=== PATIENT | male | born 1995 | race African-American/Black ===

== ENCOUNTER 2017-04-26 15:47 | Emergency (ER) | payer OTHER ==
[~2017-04-26] VITALS: Ht 182.9 cm; Wt 81.7 kg
[2017-04-26] MEDS ORDERED: OSELB75 PO (18:00)
== END 2017-04-26 18:24 | disposition home or self-care (01) ==
LOC: ER 15:47
DX: J11.1 Influenza due to unidentified influenza virus with other respiratory manifestations (principal)

== ENCOUNTER 2017-09-01 22:50 | Emergency (ER) | payer BC, OTHER ==
[~2017-09-01] VITALS: Ht 182.9 cm; Wt 86.2 kg
--- NOTE | ~2017-09-01 | EKG ---
[address] [address] [place] [address] ELECTROCARDIOGRAM REPORT Name: BALDEMAR CARLISLE [id number] Admission: 09/01/17 Attend Phys: Discharge: 09/02/17 Date of : [birth year] Report #: [id number] THIS REPORT FOR: //name// [facility] ED Test Date: 2017-09-01 Test Time: 22:53:15 Pat Name: BALDEMAR CARLISLE Department: Room: Gender: Environmental Compliance Officer: [facility] : 1995 Requested By: Mignon Burns Order Number: [id number] MD: René Reeves Measurements Intervals [place] Rate: 67 P: 77 VA: 186 QRS: 98 QRSD: 90 T: 48 QT: 376 QTc: 397 Interpretive Statements Sinus rhythm right axis deviation ST elev, probable normal early repol pattern No previous ECG available for comparison Electronically Signed On 09-02-2017 8:58:39 CDT by René Reeves [email or web address] <ELECTRONICALLY SIGNED> By: René Reeves MD, [facility] 09/02/17 [id number] René Reeves MD, FACC /EPI
[~2017-09-01 22:50] MED LIST: OSELB75 PO
[2017-09-02 00:09] LABS: ABSOLUTE NEUTROPHILS 4.2 thou/uL (1.4-8.2); HEMATOCRIT 44.3 % (42.0-52.0); HEMOGLOBIN 15.4 gm/dL (14.0-18.0); LYMPHOCYTES 33.1 % (24.0-44.0); MCH 32.2 pg (26.0-34.0); MCHC 34.8 g/dL (28.0-37.0); MCV 92.5 fL (80.0-100.0); MONOCYTES 8.7 % (1.0-8.0); PLATELET COUNT 298 thou/uL (150-400); POLYS 56.2 % (36.0-66.0); RBC 4.79 mil/uL (4.50-6.00); RDW 14.8 % (10.5-14.5); WBC 7.4 thou/uL (4.0-11.0)
[2017-09-02 00:18] LABS: ANION GAP 2 mmol/L (7-16); BUN 16 mg/dL (7-18); CALCIUM 9.7 mg/dL (8.5-10.1); CHLORIDE 98 mmol/L (98-107); CO2 29 mmol/L (21-32); CREATININE 1.1 mg/dL (0.7-1.3); GLUCOSE 109 mg/dL (74-106); POTASSIUM 4.3 mmol/L (3.5-5.1); SODIUM 129 mmol/L (136-145)
[2017-09-02 00:28] LABS: TROPONIN-I <0.06 ng/mL (<0.06)
[2017-09-02 00:56] VITALS: BP 127/78
== END 2017-09-02 00:57 | disposition home or self-care (01) ==
LOC: ER 22:50
PROVIDERS: Emergency Medicine
DX: R55 Syncope and collapse (principal)